=== PATIENT | male | born 1945 ===

== ENCOUNTER 2018-06-04 09:44 | Day surgery (SDC) | payer MEDICAID ==
[2018-06-04 10:13] VITALS: BMI 25.7
[2018-06-04] MEDS ORDERED: Lactated Ringer's 500 ML IV ONE (10:14)
[2018-06-04 10:33] VITALS: TEMP 97; O2SAT 99
[2018-06-04] MEDS ORDERED: Propofol 10 mg/ml Inj (20 ML) ONE (11:44)
[2018-06-04 12:15] VITALS: RESP 16
[2018-06-04 12:29] VITALS: BP 106/55; PULSE 84
== END 2018-06-04 13:46 | disposition home or self-care (01) ==
LOC: H.ENDO 09:44
PROVIDERS: ATTEND Internal Medicine Gastroenterology
DX: Z12.11 Encounter for screening for malignant neoplasm of colon (principal); E11.9 Type 2 diabetes mellitus without complications; I10 Essential (primary) hypertension; K64.8 Other hemorrhoids
CPT/HCPCS: 45378; J2001; J2704; J7120